=== PATIENT | female | born 1960 | race American Indian/Alaskan Native ===

== ENCOUNTER 2016-04-23 22:52 | Emergency (ER) | payer MEDICARE ==
[2016-04-23 23:09] VITALS: BP 151/107
[2016-04-23 23:37] LABS: Basophils % (Auto) 0.6 % (0.0-1.8); Eosinophils % (Auto) 0.6 % (0.0-4.3); Hematocrit 46.5 % (30.3-42.9); Hemoglobin 15.4 gm/dl (10.1-14.3); Mean Corpuscular HGB Conc 33 % (30-34); Mean Corpuscular Hemoglobin 30 pg (28-32); Mean Corpuscular Volume 91 fl (79-97); Platelet Count 237 K/mm3 (140-440); Red Blood Count 5.09 M/mm3 (3.65-5.03); Red Cell Distribution Width 14.2 % (13.2-15.2); White Blood Count 10.1 K/mm3 (4.5-11.0)
[2016-04-23 23:54] LABS: Anion Gap 17 mmol/L; Blood Urea Nitrogen 14 mg/dL (7-17); Carbon Dioxide 24 mmol/L (22-30); Chloride 104.8 mmol/L (98-107); Glucose 119 mg/dL (65-100); Potassium 3.7 mmol/L (3.6-5.0); Sodium 142 mmol/L (137-145)
--- NOTE | 2016-04-26 18:33 | ED Elopement Review ---
ED Pt Elopement review - Results review Lab results: Laboratory Tests 04/23/16 04/23/16 23:17 23:17 WBC 10.1 RBC 5.09 H Hgb 15.4 H Hct 46.5 H MCV 91 MCH 30 MCHC 33 RDW 14.2 Plt Count 237 Lymph % (Auto) 25.2 Hawkins % (Auto) 8.5 H Eos % (Auto) 0.6 Baso % (Auto) 0.6 Lymph # 2.5 Hawkins # 0.9 H Eos # 0.1 Baso # 0.1 Seg Neutrophils % 65.1 Seg Neutrophils # 6.6 Sodium 142 Potassium 3.7 Chloride 104.8 Carbon Dioxide 24 Anion Gap 17 BUN 14 Creatinine 2.0 H Estimated GFR 31 BUN/Creatinine Ratio 7.00 Glucose 119 H Calcium 9.0 Troponin T < 0.010 - Call Back decision Pt Call Back Decision: Pt to F/U with PMD (creatinine is 2.0)
== END 2016-04-23 23:18 | disposition left against medical advice (07) ==
LOC: ED 22:52
DX: R07.9 Chest pain, unspecified (principal); R42 Dizziness and giddiness; R06.00 Dyspnea, unspecified; Z53.21 Procedure and treatment not carried out due to patient leaving prior to being seen by health care provider
CPT/HCPCS: 36415; 80048; 84484; 85025; 93005; 93010

== ENCOUNTER 2017-01-19 12:49 | Outpatient (CLI) | payer MEDICARE ==
--- NOTE | 2017-01-19 13:30 | XRay Report ---
XRAY RIGHT HIP TWO VIEWS: 01/19/17 12:49:00 CLINICAL: Neck pain. FINDINGS: No fracture or dislocation.Mild arthritis with mild joint space narrowing and superior acetabular eburnation. Similar changes in the left hip. Normal soft tissues. IMPRESSION: Mild osteoarthritis of both hips.
== END 2017-01-19 12:50 | disposition home or self-care (01) ==
LOC: SPVIMAG 12:49
PROVIDERS: ATTEND Internal Medicine
DX: M16.0 Bilateral primary osteoarthritis of hip (principal)